=== PATIENT | male | born 1955 ===

== ENCOUNTER 2017-12-02 11:26 | Emergency (ER) | payer MEDICAID, OTHER ==
--- NOTE | 2017-12-02 13:10 | C.PDOC ---
History Of Present Illness 62 y/o male presents to the ED complaining of a productive cough for 2-3 weeks. Associated with chills. No fever, vomiting, diarrhea, or SOB. Patient reports having similar symptoms 3 years ago, was seen here, diagnosed with pneumonia and treated with antibiotics and a cough medication that improved his symptoms markedly. Time Seen by Provider: 12/02/17 12:03 Chief Complaint (Nursing): Cough, Cold, Congestion History Per: Patient History/Exam Limitations: no limitations Onset/Duration Of Symptoms: Days Current Symptoms Are (Timing): Still Present Past Medical History Reviewed: Historical Data, Nursing Documentation, Vital Signs Vital Signs: Last Vital Signs Temp 98.8 F 12/02/17 13:23 Pulse 109 H 12/02/17 13:23 Resp 16 12/02/17 13:23 BP 128/83 12/02/17 13:23 Pulse Ox 97 12/02/17 13:24 - Medical History PMH: Hepatitis, Pneumonia Surgical History: Hernia Repair Family History: States: Unknown Family Hx - Social History Hx Tobacco Use: No Hx Alcohol Use: No Hx Substance Use: No - Immunization History Hx Tetanus Toxoid Vaccination: No Hx Influenza Vaccination: No Hx Pneumococcal Vaccination: No Review Of Systems Except As Marked, All Systems Reviewed And Found Negative. Constitutional: Positive for: Chills. Negative for: Fever ENT: Positive for: Nose Congestion Respiratory: Positive for: Cough, Sputum. Negative for: Shortness of Breath Gastrointestinal: Negative for: Vomiting, Diarrhea Physical Exam - Physical Exam Appears: Non-toxic, No Acute Distress Skin: Normal Color, Warm, Dry Head: Atraumatic, Normacephalic Eye(s): bilateral: Normal Inspection, PERRL, EOMI Oral Mucosa: Moist Neck: Normal ROM Chest: Symmetrical Cardiovascular: Rhythm Regular, No Murmur Respiratory: No Rales, Rhonchi (scattered), No Wheezing Pulses: Left Radial: Normal, Right Radial: Normal Neurological/Psych: Oriented x3, Normal Speech ED Course And Treatment O2 Sat by Pulse Oximetry: 97 (RA) Pulse Ox Interpretation: Normal - Radiology CXR: Interpreted by Me, Viewed By Me CXR Interpretation: Yes: No Acute Disease. No: Infiltrates Medical Decision Making Medical Decision Making: Time: 12:04 Plan: * CXR to rule out pneumonia CXR viewed, shows no acute disease Patient will be discharged home with rx for Tussionex, Prednisone, Zithro, and Ventolin inhaler. On re-exam, the patient reports improvement of symptoms. Lugs are CTA, heart is RRR, Abdomen is soft, non-tender and the patient is tolerating PO well. Counseled patient regarding diagnosis, advised to return to the ED for acutely worsening symptoms Disposition Counseled Patient/Family Regarding: Studies Performed, Diagnosis, Need For Followup, Rx Given - Disposition Disposition: HOME/ ROUTINE Disposition Time: 13:10 Condition: STABLE Additional Instructions: Follow up with medical doctor within 1-2 days. Return if worsened. 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 - Scribe Statement The provider has reviewed the documentation as recorded by the Scribe (Carolina Gonzalez) All medical record entries made by the Scribe were at my direction and personally dictated by me. I have reviewed the chart and agree that the record accurately reflects my personal performance of the history, physical exam, medical decision making, and the department course for this patient. I have also personally directed, reviewed, and agree with the discharge instructions and disposition.
[2017-12-02 13:24] VITALS: BP 128/83; PULSE 109; RESP 16; TEMP 98.8; O2SAT 97
--- NOTE | 2017-12-02 14:38 | RAD ---
Chest x-ray two views History: Cough. Comparison: 07/12/2015 Findings: Biapical pleural thickening with upper lobe granulomatous changes. Mild venous congestion. Right hilar prominence. Tortuous aorta. Degenerative changes in the spine and shoulders. Impression: No focal infiltrate or effusion. If there is concern for underlying pulmonary nodules, consider correlation with a chest CT.
== END 2017-12-02 14:15 | disposition home or self-care (01) ==
LOC: C.ER 11:26
DX: J40 Bronchitis, not specified as acute or chronic (principal); F17.210 Nicotine dependence, cigarettes, uncomplicated

== ENCOUNTER 2017-12-08 16:04 | Emergency (ER) | payer OTHER ==
[2017-12-08 16:11] VITALS: BP 149/83; PULSE 89; TEMP 97.9; O2SAT 97
--- NOTE | 2017-12-08 16:42 | C.PDOC ---
History Of Present Illness 62 year old male presents to the ER with a complaint of a cough. Patient was seen in the ER last week for the same complaints, he states he is almost done with all his antibiotics and prednisone and ran out of his cough syrup; however , cough persists. Denies fever, chest pain, or SOB. Time Seen by Provider: 12/08/17 16:25 Chief Complaint (Nursing): Cough, Cold, Congestion History Per: Patient History/Exam Limitations: no limitations Onset/Duration Of Symptoms: Days Current Symptoms Are (Timing): Still Present Location Of Pain: None Sick Contacts (Context): None Associated Symptoms: denies: Fever, Other (Chest pain, SOB) Ear Symptoms: Bilateral: None Recent travel outside of the [place]: No Past Medical History Reviewed: Historical Data, Nursing Documentation, Vital Signs Vital Signs: Last Vital Signs Temp 97.9 F 12/08/17 16:08 Pulse 89 12/08/17 16:08 Resp 20 12/08/17 16:49 BP 149/83 12/08/17 16:08 Pulse Ox 97 12/08/17 18:20 - Medical History PMH: Hepatitis, Pneumonia Surgical History: Hernia Repair Family History: States: Unknown Family Hx - Social History Hx Tobacco Use: No Hx Alcohol Use: No Hx Substance Use: No - Immunization History Hx Tetanus Toxoid Vaccination: No Hx Influenza Vaccination: No Hx Pneumococcal Vaccination: No Review Of Systems Constitutional: Negative for: Fever Cardiovascular: Negative for: Chest Pain Respiratory: Positive for: Cough. Negative for: Shortness of Breath Physical Exam - Physical Exam Appears: Well, Non-toxic, No Acute Distress Skin: Normal Color, Warm, Dry, No Diaphoretic, No Rash Head: Atraumatic, Normacephalic Eye(s): bilateral: Normal Inspection, PERRL, EOMI Ear(s): Bilateral: Normal Nose: Normal Oral Mucosa: Moist Throat: Normal, No Erythema, No Exudate Neck: Normal, Supple Chest: Symmetrical, No Tenderness Cardiovascular: Rhythm Regular Respiratory: Normal Breath Sounds, No Rales, No Rhonchi, No Wheezing, Other ( Active cough) Gastrointestinal/Abdominal: Soft, No Tenderness Extremity: Bilateral: Atraumatic, Normal ROM Neurological/Psych: Oriented x3, Normal Speech Gait: Steady ED Course And Treatment O2 Sat by Pulse Oximetry: 97 (Room air) Pulse Ox Interpretation: Normal Medical Decision Making Medical Decision Making: Patient afebrile and in no respiratory distress. Lungs clear no wheezing or rhonchi. Prior record reviewed, CXR performed showing no infiltrates. Patient given refill of Rx and instructed to follow up with PMD or return if symptoms worsen. Disposition Counseled Patient/Family Regarding: Diagnosis, Need For Followup, Rx Given - Disposition Referrals: [facility] [Outside] [facility] [Outside] Disposition: HOME/ ROUTINE Disposition Time: 16:38 Condition: STABLE Additional Instructions: Termine los medicamentos actuales administrados en [place] visita previa [place] medicamentos para la tos cada 8 horas cuando sea necesario Por favor, vaya a la clnica para ms cuidados Prescriptions: Loratadine [Claritin] 10 mg PO DAILY #30 tab Promethazine/Phenyleph/Codeine [Kerbnrzxrbpf-SK-Mkqglsz Syrup] 5 ml PO Q8 #150 ml Instructions: Acute Bronchitis Forms: [employer] (Kyrgyz) Print Language: EGYPTIAN - POA Present On Arrival: None - Clinical Impression 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 - Scribe Statement The provider has reviewed the documentation as recorded by the Scribe Norberto Joe All medical record entries made by the Pieroibkanu were at my direction and personally dictated by me. I have reviewed the chart and agree that the record accurately reflects my personal performance of the history, physical exam, medical decision making, and the department course for this patient. I have also personally directed, reviewed, and agree with the discharge instructions and disposition.
[2017-12-08 16:50] VITALS: RESP 20
== END 2017-12-08 16:50 | disposition home or self-care (01) ==
LOC: C.ER 16:04
DX: J40 Bronchitis, not specified as acute or chronic (principal)

== ENCOUNTER 2018-06-19 15:41 | Emergency (ER) | payer SELFPAY ==
[2018-06-19 16:11] VITALS: BP 150/95; PULSE 75; RESP 20; TEMP 98.2; O2SAT 98
--- NOTE | 2018-06-19 16:39 | C.PDOC ---
History Of Present Illness 62 year old presents to the ED complaining of right shoulder and neck pain ongoing for one year. Denies any trauma or falls. Pain is worse with movement. Denies any weakness, numbness, tingling. Reports he took Motrin and applied pain relieving ointment with minimal relief. Time Seen by Provider: 06/19/18 16:07 Chief Complaint (Nursing): Headache History Per: Patient History/Exam Limitations: no limitations Onset/Duration Of Symptoms: Other (1 year) Current Symptoms Are (Timing): Still Present Severity: Moderate Quality: "Pain" Preceeding Symptoms: None Associated Symptoms: denies: Extremity Weakness Past Medical History Reviewed: Historical Data, Nursing Documentation, Vital Signs Vital Signs: Last Vital Signs Temp 98.2 F 06/19/18 15:59 Pulse 75 06/19/18 15:59 Resp 20 06/19/18 15:59 BP 150/95 H 06/19/18 15:59 Pulse Ox 98 06/19/18 15:59 - Medical History PMH: Hepatitis, Pneumonia Surgical History: Hernia Repair Family History: States: No Known Family Hx - Social History Hx Tobacco Use: No Hx Alcohol Use: No Hx Substance Use: No - Immunization History Hx Tetanus Toxoid Vaccination: No Hx Influenza Vaccination: No Hx Pneumococcal Vaccination: No Review Of Systems Constitutional: Negative for: Fever, Weakness Eyes: Negative for: Pain ENT: Negative for: Ear Pain Cardiovascular: Negative for: Chest Pain, Edema Musculoskeletal: Positive for: Shoulder Pain (right), Back Pain (right) Neurological: Negative for: Weakness, Numbness Physical Exam - Physical Exam Appears: Non-toxic Skin: Warm, Dry Head: Normacephalic Eye(s): bilateral: Normal Inspection Nose: Normal Oral Mucosa: Moist Neck: No Normal ROM (limited due to pain), Trachea Midline, Paracervical Tenderness, Supple Chest: Symmetrical Cardiovascular: Rhythm Regular Respiratory: Normal Breath Sounds, No Rales, No Rhonchi, No Wheezing Back: Muscle Spasm Neurological/Psych: Oriented x3, Normal Speech Gait: Steady ED Course And Treatment O2 Sat by Pulse Oximetry: 98 (RA) Pulse Ox Interpretation: Normal - Other Rad XR right shoulder X-Ray: Viewed By Me, Read By Radiologist Interpretation: Accession No. : [id number]. Patient Name / ID : MOSHE MELTON / [id number]. Exam Date : 06/19/2018 16:43:29 ( Approved ). Study Comment : Sex / Age : M / [id number]. Creator : Damien Crews MD. Dictator : Damien Crews MD. Coordinator Skill Training Program : Signals Intelligence Analyst : Damien Crews MD. Approver2 : Report Date : 06/19/2018 17:30:25. My Comment : . Date of service: 06/19/2018. PROCEDURE: Radiographs of the Right Shoulder. HISTORY: shoulder pain x several months. COMPARISON: No prior. FINDINGS: BONES: No acute fracture. JOINTS: Mild acromioclavicular joint degenerative changes. SOFT TISSUES: Normal. OTHER FINDINGS: None. IMPRESSION: No demonstrated fracture or dislocation. Mild acromioclavicular joint degenerative changes. Medical Decision Making Medical Decision Making: Plan - Flerexil 10mg PO - Toradol 15mg IM - XR right shoulder Xrays are negative. On re-exam, the patient reports improvement of symptoms. Lungs are CTA, heart is RRR, abdomen is soft, non-tender and the patient is tolerating PO well. Ambulatory in the ED with steady gait, (-) numbness, (-) weakness. Follow up with the medical doctor/clinic within 1-2 days. Return if worsened. Disposition - Disposition Referrals: [facility] [Outside] Raj Patiño MD [Non-Staff] - Disposition: HOME/ ROUTINE Disposition Time: 17:52 Condition: STABLE Additional Instructions: Follow up with the medical doctor/clinic within 1-2 days. Return if worsened. 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 - Scribe Statement The provider has reviewed the documentation as recorded by the Scribe Kym Dunn All medical record entries made by the Krysten were at my direction and personally dictated by me. I have reviewed the chart and agree that the record accurately reflects my personal performance of the history, physical exam, medical decision making, and the department course for this patient. I have also personally directed, reviewed, and agree with the discharge instructions and disposition.
--- NOTE | 2018-06-19 17:33 | RAD ---
Date of service: 06/19/2018 PROCEDURE: Radiographs of the Right Shoulder HISTORY: shoulder pain x several months COMPARISON: No prior. FINDINGS: BONES: No acute fracture. JOINTS: Mild acromioclavicular joint degenerative changes. SOFT TISSUES: Normal. OTHER FINDINGS: None. IMPRESSION: No demonstrated fracture or dislocation. Mild acromioclavicular joint degenerative changes.
== END 2018-06-19 18:01 | disposition home or self-care (01) ==
LOC: C.ER 15:41
DX: M62.838 Other muscle spasm (principal)
CPT/HCPCS: 73030; 96372; 99284; J1885